=== PATIENT | female | born 1985 | race Caucasian/White ===

== ENCOUNTER 2018-02-09 14:27 | Emergency (ER) | payer MEDICAID, SELFPAY ==
--- NOTE | 2018-02-09 19:02 | ER ---
Nurse's Notes [facility] Name: Caitlin Self Age: 32 yrs Sex: Female : 1985 Arrival Date: 02/09/2018 Time: 14:31 Bed Waiting Private MD: None, None Diagnosis: Presentation: 02/09 14:43 Presenting complaint: Patient states: lower back pain x 1 week ago. Pt denies known aa5 injury, denies urinary symptoms. Transition of care: patient was not received from another setting of care. Onset of symptoms was January 2018. Risk Assessment: Do you want to hurt yourself or someone else? Patient reports no desire to harm self or others. Initial Sepsis Screen: Does the patient meet any 2 criteria? No. Patient's initial sepsis screen is negative. Does the patient have a suspected source of infection? No. Patient's initial sepsis screen is negative. Care prior to arrival: None. 14:43 Method Of Arrival: Ambulatory aa5 14:43 Acuity: BRIANNE 4 aa5 SUPERVISOR LACE TEARING: 14:44 LMP 02/07/2018 aa5 Historical: - Allergies: 14:44 No Known Allergies; aa5 - PMHx: 14:44 None; aa5 - PSHx: 14:44 Hernia repair; Tubal ligation; aa5 - Immunization history:: Adult Immunizations up to date. - Social history:: Smoking status: Patient uses tobacco products, smokes two packs cigarettes per day. - Ebola Screening: : No symptoms or risks identified at this time. Vital Signs: 14:44 BP 135 / 83; Pulse 71; Resp 18 S; Temp 99.2(TE); Pulse Ox 99% on R/A; Weight 83.91 kg aa5 (R); Height 5 ft. 3 in. (160.02 cm) (R); Pain 7/10; 14:44 Body Mass Index 32.77 (83.91 kg, 160.02 cm) aa5 ED Course: 14:31 Patient arrived in ED. sb2 14:31 None, None is Private Physician. sb2 14:43 Triage completed. aa5 14:43 Arm band placed on. aa5 18:45 Patient's name was called from ER lobby. No response. fc 19:01 Patient's name was called from ER lobby. No response. Unable to locate patient. Will ss disposition as left without being seen by a provider. Administered Medications: No medications were administered Outcome: 19:01 Eloped from waiting room, before seeing physician 19:01 Patient left the ED. Signatures: Mady Lowe, RN RN Whitley Del Toro, RN RN aa5 Natty Forde RN RN ss Angely Hare sb2
[2018-02-09 19:39] VITALS: BP 135/83; TEMP 99.2; O2SAT 99
== END 2018-02-09 19:01 | disposition left against medical advice (07) ==
LOC: ER 14:27
DX: Z53.21 Procedure and treatment not carried out due to patient leaving prior to being seen by health care provider (principal)
CPT/HCPCS: 99281

== ENCOUNTER 2024-11-04 18:45 | Emergency (ER) | payer SELFPAY ==
--- NOTE | 2024-11-04 20:29 | RAD REPORT ---
Procedure: Chest Single View HISTORY: Chest pain COMPARISON: none FINDINGS: The lungs appear clear of acute infiltrate. No significant pleural effusion noted. The heart is normal size. IMPRESSION: No acute abnormality is displayed.
[2024-11-04 22:09] LABS: Anion Gap 8.6 mEq/L (5.0-15.0); BUN Blood Urea Nitrogen 15 mg/dL (7-18); Bicarbonate 26 mEq/L (21-32); Creatine Phosphokinase 56 U/L (26-192); Glomerular Filtration Rate 95 ml/min (=/>90); Glucose Level 102 mg/dL (74-106); NT PRO-BNP 37 pg/mL (<125); Potassium 3.6 mEq/L (3.5-5.1); Sodium Level 139 mEq/L (136-145)
[2024-11-04 22:13] LABS: Troponin High Sensitivity < 3.0 pg/mL (<58.9)
[2024-11-04 22:23] LABS: Absolute Basophils 0.1 K/uL (0-0.5); Absolute Eosinophils 0.2 K/uL (0-0.5); Absolute Lymphocytes (CBC) 2.6 K/uL (0.7-4.9); Absolute Monocytes 0.4 K/uL (0.1-1.3); Absolute Neutrophil 7.9 K/uL (1.8-8.0); Basophils % 0.9 % (0-1.3); Eosinophils % 1.8 % (0-4.4); Hematocrit 41.5 % (36.0-45.0); Hemoglobin 14.3 g/dL (12.0-15.0); Lymphocytes % 23.2 % (15.3-44.8); MCH 32.1 pg (27.0-35.0); MCHC 34.5 g/dL (32.0-36.0); MCV 92.9 fL (80-100); MPV 8.4 fL (7.6-11.3); Monocytes % 3.8 % (3.3-12.3); Neutrophils % 70.3 % (41.7-73.7); Nucleated Red Blood Cells % 0.1 % (0-0); Platelets 275 thou/uL (152-406); RBC Red Blood Cell Count 4.47 M/uL (3.86-4.86); Red Cell Distribution Width 13.4 % (12.1-15.2)
[2024-11-04 23:37] LABS: Specific Gravity 1.024 (1.005-1.030)
[2024-11-04 23:39] LABS: Specific Gravity 1.024 (1.005-1.030); Sqamous Epithelial <5 /HPF (None Seen); Urine Bacteria None Seen /HPF (<20); Urine Bilirubin NEGATIVE (Negative); Urine Blood 1+ (Negative); Urine Clarity Turbid (Clear); Urine Color Light-Yellow (Yellow); Urine Culture Reflex Order NOT NEEDED; Urine Glucose NEGATIVE (Negative); Urine Ketones NEGATIVE (Negative); Urine Microscopic Reflex YN ORDER UMIC; Urine Mucus Slight /HPF (None Seen); Urine Nitrite NEGATIVE (Negative); Urine Protein NEGATIVE (Negative); Urine RBC <5 /HPF (None Seen); Urine Urobilinogen Normal (Normal); Urine WBC <5 /HPF (<5); Urine pH 5.5 (5.0-7.0)
--- NOTE | 2024-11-05 00:42 | EDPHYS ---
Physician Documentation [facility] Name: Caitlin Carroll Age: 39 yrs Sex: Female : 1985 Arrival Date: 11/04/2024 Time: 18:45 Bed 16 Private MD: ED Physician Gómez Brown HPI: 11/04 19:23 This 39 yrs old Female presents to ER via EMS with complaints of Chest Pain. kb 19:24 Pt is a 39 year old female who presents for palpitations and chest pain that started kb around 1630 today. States she did yard work, took a shower and started having the symptoms after that. States she laid in bed and the symptoms weren't going away so her mom called 911. States she thought it could be a panic attack because she had those years ago, but has never had one like this. . Historical: - Allergies: 19:12 No Known Allergies; hb - Home Meds: 19:12 None [Active]; hb - PMHx: 19:12 None; hb - PSHx: 19:12 Tubal Ligation; Hernia Repair; hb - Immunization history:: Adult Immunizations up to date. - Infectious Disease History:: Denies. - Social history:: Smoking status: Patient reports the use of cigarette tobacco products. ROS: 19:22 Constitutional: As per HPI kb Exam: 19:21 Constitutional: This is a well developed, well nourished patient who is awake, alert, kb and in no acute distress. Head/Face: Normocephalic, atraumatic. ENT: Moist Mucous membranes Cardiovascular: Regular rate Respiratory: Respirations even and unlabored. No increased work of breathing. Talking in full sentences Abdomen/GI: Soft, non-tender. No distention Skin: Warm, dry with normal turgor. Normal color. MS/ Extremity: Pulses equal, no cyanosis. Neurovascular intact. Full, normal range of motion. Neuro: Awake and alert, GCS 15, oriented to person, place, time, and situation. 19:21 ECG was reviewed by the Attending Physician. Vital Signs: 19:10 BP 148 / 91; Pulse 83; Resp 16; Temp 98.4(O); Pulse Ox 97% on R/A; Weight 93.89 kg; hb Height 5 ft. 3 in. ; Pain 2/10; 22:15 BP 126 / 81; Pulse 81; Resp 18 S; Pulse Ox 100% on R/A; br2 23:31 BP 116 / 81; Pulse 77; Resp 18 S; Pulse Ox 99% on R/A; br2 11/05 00:26 BP 128 / 90; Pulse 77; Resp 18; Pulse Ox 98% on R/A; br2 00:46 BP 123 / 75; Pulse 79; Resp 18; Temp 97.2; Pulse Ox 97% on R/A; br2 11/04 19:10 Body Mass Index 36.67 (93.89 kg, 160.02 cm) hb 11/04 19:10 Pain Scale: Adult hb MDM: 11/04 19:10 Medical Screening Exam initiated kb 19:23 Data reviewed: vital signs, nurses notes. kb 11/05 00:40 Differential diagnosis: abnormal EKG, acute myocardial infarction, anxiety, coronary kb artery disease pulmonary embolus. Consideration of Admission/Observation Escalation of care including admission/observation considered. admission considered for chest pain but HEART score 0. Counseling: I had a detailed discussion with the patient and/or guardian regarding the historical points, exam findings, and any diagnostic results supporting the discharge/admit diagnosis, lab results, radiology results, the need for outpatient follow up, a family practitioner, to return to the emergency department if symptoms worsen or persist or if there are any questions or concerns that arise at home. 11/04 19:15 Order name: Basic Metabolic Panel; Complete Time: 22:17 kb 11/04 19:15 Order name: CBC with Diff; Complete Time: 22:34 kb 11/04 19:15 Order name: D-Dimer; Complete Time: 22:00 kb 11/04 19:15 Order name: Troponin HS; Complete Time: 22:17 kb 11/04 19:15 Order name: BNP; Complete Time: 22:17 kb 11/04 19:15 Order name: CPK; Complete Time: 22:17 kb 11/04 23:11 Order name: Test, Urine; Complete Time: 23:44 kb 11/04 23:11 Order name: Urinalysis w/ reflexes; Complete Time: 23:44 kb 11/04 23:36 Order name: Troponin High Sensitivity; Complete Time: 00:40 kb 11/04 19:15 Order name: XRAY Chest (1 view); Complete Time: 20:34 kb 11/04 22:00 Order name: CT Chest For PE Angio kb 11/04 19:15 Order name: Cardiac monitoring; Complete Time: 22:09 kb 11/04 19:15 Order name: EKG - Nurse/Tech; Complete Time: 19:30 kb 11/04 19:15 Order name: IV Saline Lock kb 11/04 19:15 Order name: Labs collected and sent; Complete Time: 22:09 kb 11/04 19:15 Order name: O2 Per Protocol; Complete Time: 22:09 kb 11/04 19:15 Order name: O2 Sat Monitoring; Complete Time: 22:10 kb EC/10 19:21 Rate is 69 beats/min. Rhythm is regular. QRS [place] is Normal. MD interval is normal at kb 152 msec. QRS interval is normal at 82 msec. QT interval is normal at 417 msec. Administered Medications: No medications were administered Disposition Summary: 11/05/24 00:42 Discharge Ordered Notes: Location: Home kb Condition: Stable kb Diagnosis - Chest pain, unspecified kb Followup: kb - With: Emergency Department - When: As needed - Reason: Worsening of condition Followup: kb - With: Private Physician - When: 2 - 3 days - Reason: Recheck today's complaints, Continuance of care, Re-evaluation by your physician Discharge Instructions: - Discharge Summary Sheet kb - Nonspecific Chest Pain, Adult, [id number] kb Forms: - Medication Reconciliation Form kb - Antibiotic Education kb - Prescription Opioid Use kb - Patient Portal Instructions kb - Leadership Thank You Letter kb Signatures: Dispatcher [employer] [facility] Rosemary Hernandez, PARTY PLAN DEALER-C PARTY PLAN DEALER-Sergeib Hien Barcenas RN RN Corrections: (The following items were deleted from the chart) 19:16 19:16 BASIC METABOLIC PANEL+C.LAB.BRZ ordered. EDMS EDMS 19:16 19:16 CBC+H.LAB.BRZ ordered. EDWV EDMS 19:16 19:16 D-DIMER+COAG.LAB.BRZ ordered. EDMS EDMS 19:16 19:16 Troponin High Sensitivity+C.LAB.BRZ ordered. EDWV EDMS 19:16 19:16 PROBNP+C.LAB.BRZ ordered. EDWV EDMS 19:16 19:16 Chest Single View+RAD.RAD.BRZ ordered. EDMS EDMS 19:16 19:16 CREATINE PHOSPHOKINASE+C.QUINZ ordered. EDMS EDMS
--- NOTE | 2024-11-05 00:42 | ER ---
Nurse's Notes [facility] Name: Caitlin Carroll Age: 39 yrs Sex: Female : 1985 Arrival Date: 11/04/2024 Time: 18:45 Bed 16 Private MD: Diagnosis: Chest pain, unspecified Presentation: 11/04 19:10 Chief complaint: EMS states: Palpitations, left sided chest pain that radiates to left hb arm and SOB that started after doing yard work and hot shower this afternoon. Coronavirus screen: At this time, the client does not indicate any symptoms associated with coronavirus-19. Ebola Screen: No symptoms or risks identified at this time. Initial Sepsis Screen: Does the patient meet any 2 criteria? No. Patient's initial sepsis screen is negative. Does the patient have a suspected source of infection? No. Patient's initial sepsis screen is negative. Risk Assessment: Do you want to hurt yourself or someone else? Patient reports no desire to harm self or others. Onset of symptoms was November 04, 2024. Care prior to arrival: Medication(s) given: ASA, zofran Toradol 15 mg IVP IV initiated. 20 GA, in the left antecubital area. 19:10 Method Of Arrival: EMS: [facility] hb 19:10 Acuity: BRIANNE 3 hb Historical: - Allergies: 19:12 No Known Allergies; hb - Home Meds: 19:12 None [Active]; hb - PMHx: 19:12 None; hb - PSHx: 19:12 Tubal Ligation; Hernia Repair; hb - Immunization history:: Adult Immunizations up to date. - Infectious Disease History:: Denies. - Social history:: Smoking status: Patient reports the use of cigarette tobacco products. Screenin:49 [facility] ED Fall Risk Assessment (Adult) History of falling in the last 3 months, br2 including since admission No falls in past 3 months (0 pts) Confusion or Disorientation No (0 pts) Intoxicated or Sedated Yes (3 pts) Impaired Gait No (0 pts) Mobility Assist Device Used No (0 pt) Altered Elimination No (0 pt) Score/Fall Risk Level 0 - 2 = Low Risk Oriented to surroundings. Abuse screen: Denies threats or abuse. Denies injuries from another. Nutritional screening: No deficits noted. Tuberculosis screening: No symptoms or risk factors identified. Assessment: 19:49 Reassessment: Patient and/or family updated on plan of care and expected duration. Pain br2 level reassessed. Patient is alert, oriented x 3, equal unlabored respirations, skin warm/dry/pink. General: Appears in no apparent distress. comfortable, Behavior is calm, cooperative. Pain: Complains of pain in anterior aspect of left upper chest Pain radiates to left scapular area Pain currently is 2 out of 10 on a pain scale. Quality of pain is described as burning, sharp, Pain began 4 hours ago. 21:00 Reassessment: Patient and/or family updated on plan of care and expected duration. Pain br2 level reassessed. Patient is alert, oriented x 3, equal unlabored respirations, skin warm/dry/pink. Patient states symptoms have improved. Neuro: [place]an Agitation-Sedation Scale (RASS): 0 - Alert and Calm Level of Consciousness is awake, alert, obeys commands, Oriented to person, place, time, situation. Respiratory: Airway is patent Respiratory effort is even, unlabored, Respiratory pattern is regular, symmetrical. 11/05 00:52 Reassessment: Patient and/or family updated on plan of care and expected duration. Pain br2 level reassessed. Patient is alert, oriented x 3, equal unlabored respirations, skin warm/dry/pink. Patient denies pain at this time. Patient states feeling better. Patient states symptoms have improved. Vital Signs: 11/04 19:10 BP 148 / 91; Pulse 83; Resp 16; Temp 98.4(O); Pulse Ox 97% on R/A; Weight 93.89 kg; hb Height 5 ft. 3 in. ; Pain 10/07; 22:15 BP 126 / 81; Pulse 81; Resp 18 S; Pulse Ox 100% on R/A; br2 23:31 BP 116 / 81; Pulse 77; Resp 18 S; Pulse Ox 99% on R/A; br2 11/05 00:26 BP 128 / 90; Pulse 77; Resp 18; Pulse Ox 98% on R/A; br2 00:46 BP 123 / 75; Pulse 79; Resp 18; Temp 97.2; Pulse Ox 97% on R/A; br2 11/04 19:10 Body Mass Index 36.67 (93.89 kg, 160.02 cm) hb 11/04 19:10 Pain Scale: Adult hb ED Course: 11/04 18:52 Patient arrived in ED. al6 19:10 [facility] kb 19:10 Gómez Brown MD is Attending Physician. kb 19:12 Triage completed. hb 19:14 Arm band placed on. hb 19:19 EKG done, by ED staff, reviewed by Rosemary MENEZES. me1 19:48 Naila Ramachandran, RN is Primary Nurse. br2 19:49 Patient has correct armband on for positive identification. Provided Education on: PLAN br2 OF CARE. Client placed on continuous cardiac and pulse oximetry monitoring. NIBP monitoring applied. medical imaging director on. 19:49 Maintain EMS IV. Dressing intact. Good blood return noted. Site clean \T\ dry. Gauge \T\ br 2 site: 20G LEFT A/C. 20:11 XRAY Chest (1 view) In Process Unspecified. EDMS 22:10 Basic Metabolic Panel Sent. br2 22:10 CBC with Diff Sent. br2 22:10 Troponin HS Sent. br2 22:10 BNP Sent. br2 23:15 CT Chest For PE Angio In Process Unspecified. EDMS 23:27 Test, Urine Sent. br2 23:27 Urinalysis w/ reflexes Sent. br2 03 00:52 No provider procedures requiring assistance completed. IV discontinued, intact, br2 bleeding controlled, No redness/swelling at site. Pressure dressing applied. Administered Medications: No medications were administered Medication: 11/04 19:49 VIS not applicable for this client. br2 Outcome: 11/05 00:42 Discharge ordered by . kb 00:52 Discharged to home ambulatory, br2 00:52 Condition: stable 00:52 Discharge instructions given to patient, Instructed on discharge instructions, follow up and referral plans. Demonstrated understanding of instructions, follow-up care, 00:53 Patient left the ED. br2 Signatures: Dispatcher [employer] EDMS Rosemary Hernandez FNP-C FNP-Ckb Baxter, Heather, RN RN Lynda Deng RN RN me1 Naila Ramachandran RN RN br2 Kasandra Brown al6 Corrections: (The following items were deleted from the chart) 11/04 19:14 19:10 BP 148 / 91; Pulse 83bpm; Resp 16bpm; Pulse Ox 97% RA; Temp 98.4F Oral; Pain hb 7/10, Adult; hb
--- NOTE | 2024-11-05 00:44 | RAD REPORT ---
PROCEDURE: Chest For Pe Angio CLINICAL HISTORY: Chest pain; Dyspnea TECHNIQUE: Contiguous axial images obtained through the chest during angiographic phase following the uneventful administration of IV contrast. Sagittal and coronal reformatted images were provided. 3-D MIP reformatted images were provided. This exam was performed according to our departmental dose-optimization program, which includes autom ated exposure control, adjustment of the mA and/or kV according to patient size and/or use of iterative reconstruction technique. COMPARISON: No prior exams provided for comparison. FINDINGS: Diagnostic quality: There is adequate opacification of the pulmonary arterial tree. Lungs: No focal consolidation. Airways are patent. Pleura: No effusion. No pneumothorax. Heart and pericardium: The heart is normal in size. No pericardial effusion. Mediastinum and jd: No pathologically enlarged lymph nodes. Lower neck and chest wall: Unremarkable Vessels: No pulmonary arterial filling defects. No thoracic aortic aneurysm. Upper abdomen: Unremarkable Bones: Unremarkable IMPRESSION: 1. No pulmonary embolic disease. 2. No acute intrathoracic disease. Electronically signed by: Jayy Alanis MD 11/04/2024 11:37 PM CDT RP Due to temporary technical issues with the PACS/[employer] reporting system, reports are being julee d by the in-house radiologist without review as a courtesy to ensure prompt reporting the interpreting radiologist is fully responsible for the content of the report. Transcribed Date/Time: 11/05/2024 12:43 AM
[2024-11-05 01:43] VITALS: BP 123/75; TEMP 97.2; O2SAT 97
--- NOTE | 2024-11-05 10:57 | EKG ---
Test Date: 2024-11-04 Test Time: 19:17:51 Manufacturing Director: HB MEASUREMENT RESULTS: Intervals: Rate: 69 OR: 152 QRSD: 82 QT: 390 QTc: 417 Vian: P: 39 OR: 152 QRS: 55 T: 41 INTERPRETIVE STATEMENTS: Normal sinus rhythm Normal ECG No previous ECG available for comparison Electronically Signed On 11-05-24 10:56:10 CDT by Rosalino Murillo
== END 2024-11-05 00:53 | disposition home or self-care (01) ==
LOC: ER 18:45
DX: R07.9 Chest pain, unspecified (principal); R00.2 Palpitations; Z72.0 Tobacco use
CPT/HCPCS: 36415; 71045; 71275; 80048; 81001; 81025; 82550; 83880; 84484; 85025; 85379; 93005; 99284; Q9967